=== PATIENT | female | born 1980 | race Caucasian/White ===

== ENCOUNTER 2020-01-17 15:26 | Emergency (ER) | payer MEDICAID, SELFPAY ==
[2020-01-17 15:31] VITALS: PULSE 103; RESP 16; O2SAT 96; BMI 36.2
--- NOTE | 2020-01-17 15:34 | W.ED.ALLEREA ---
HPI - Allergic Reaction General: Chief complaint: Allergic Reaction Stated complaint: ALLERGIC RXN TO WASP Time Seen by Provider: 01/17/20 15:33 History of Present Illness: HPI narrative: 39-year-old female reports being stung by a wasp and having allergic reaction. Not in any respiratory distress she has some redness and swelling on her posterior right thigh Onset (ago): minute(s) Exposure: insect bite Associated symptoms: Reports itching; Deny abdominal pain, difficulty breathing, dysphagia, dizziness, facial swelling, hoarseness, lip swelling, nausea, rash, tongue swelling or vomiting Severity: mild Treatment prior to arrival: none Previous Allergic Reaction History: none Review of Systems Const: Denies: fever(s), chills, body aches, change in appetite, fatigue or malaise ENMT: Denies: hoarseness Card: Denies: chest pain, edema, dyspnea on exertion or orthopnea Resp: Denies: dyspnea, productive cough or non-productive cough GI: Denies: abdominal pain, nausea, vomiting or dysphagia Neuro: Denies: dizziness All/Imm: Denies: tongue swelling or facial swelling Physical Exam Const: COMMON NORMALS: no acute distress GENERAL APPEARANCE: cooperative and comfortable ORIENTATION/CONSCIOUSNESS: Yes awake, Yes oriented to person, Yes oriented to place and Yes oriented to time HENMT: COMMON NORMALS: normocephalic, atraumatic and hearing grossly normal bilaterally HEAD & SCALP: normocephalic and atraumatic Eye: COMMON NORMALS: Equal, round and reactive pupils present, EOMs intact bilaterally, conjunctivae normal and no scleral icterus CONJUNCTIVA: Yes conjunctivae normal PUPIL: Yes Equal, round and reactive pupils present Neck/C-Spine: COMMON NORMALS: no JVD Resp: COMMON NORMALS: normal respiratory effort, No retractions, No use of accessory muscles and clear to auscultation bilaterally AUSCULTATION: clear to auscultation bilaterally Cardio: COMMON NORMALS: no JVD, regular rate, regular rhythm and No murmurs present (Cardio) RATE: regular rate RHYTHM: regular rhythm GI: COMMON NORMALS: Soft to palpation and No hepatosplenomegaly present AUSCULTATION: Yes normoactive bowel sounds PALPATION: Yes Soft to palpation, No Tenderness to palpation present (GI), No Guarding due to palpation present (GI) and Yes No hepatosplenomegaly present Extremity: COMMON NORMALS: normal to inspection, capillary refill normal, no clubbing, cyanosis or edema, no calf tenderness and no pedal edema Neuro: SENSORIUM/ORIENTATION: Yes oriented to person, Yes oriented to place and Yes oriented to time Course Vital Signs: Vital signs: Vital Signs Pulse Rate 105 H 01/17/20 15:59 Respiratory Rate 18 01/17/20 15:59 Blood Pressure 128/77 01/17/20 15:59 Pulse Oximetry 97 01/17/20 15:59 MDM - Allergic Reaction MDM Narrative: Medical decision making narrative: Localized reaction about a 5 cm round area mildly indurated and reddened there is no sign of abscess no other area of rash. Discharge Plan Discharge Patient Disposition: Home Clinical Impression: Wasp sting Condition: Stable Prescriptions: New Medrol (Bj) 4 mg tablets,dose pack See Rx Instructions .ROUTE .COMPLEX Qty: 21 RF: 0 hydroxyzine HCl 25 mg tablet 25 mg PO Q6H PRN (Reason: itching) Qty: 14 RF: 0 Discharge Orders: Discharge Order (Routine); Ordered 01/17/20 Ordered By: Arcadio Ahumada Referrals: Soy Knapp MD [Primary Care Provider] - Discharge Diet: Usual diet Discharge Activity: Increase activity as tolerated Discharge Date/Time: 01/17/20 16:00 Coding Level of Care Code ED [employer] [facility]
[2020-01-17] MEDS: dexamethasone 10 mg/mL INJ IM (15:41)
[2020-01-17 15:42] VITALS: RESP 18
[2020-01-17] MEDS: hyDROXYzine 25 mg Capsule PO (15:44)
[2020-01-17 15:59] VITALS: BP 128/77; PULSE 105; RESP 18; O2SAT 97
== END 2020-01-17 16:00 | disposition home or self-care (01) ==
LOC: ER 15:49
PROVIDERS: Emergency Provider Family Medicine; PCP Family Medicine
DX: T63.461A Toxic effect of venom of wasps, accidental (unintentional), initial encounter (principal)
CPT/HCPCS: 12345; 96372; 99283; J1100

== ENCOUNTER → 2022-04-09 14:40 | Outpatient (BNVA) | payer MEDICAID, SELFPAY | PROVIDERS: PCP Family Medicine; Visit Provider Nurse Practitioner Women's Health | DX: Z12.4 Encounter for screening for malignant neoplasm of cervix (principal) | CPT/HCPCS: 87624 ==

== ENCOUNTER 2024-05-31 07:24 | Emergency (ER) | payer SELFPAY ==
[2024-05-31 07:32] VITALS: BP 134/75; PULSE 83; RESP 18; TEMP 36.8; O2SAT 97; BMI 36.9
--- NOTE | 2024-05-31 09:30 | W.ED.EYEPROB ---
HPI - Eye Problem General: Chief complaint: Eye Problems Stated complaint: rt eye inj Time Seen by Provider: 05/31/24 07:26 Source: patient Mode of arrival: ambulatory Limitations: no limitations History of Present Illness: 43-year-old woman presents to the ER complaining of right eye pain. Patient states this started 4 days ago. Thinks maybe she scratched her eye. She has noticed what she believes to be a stye to her inner lower lid. She has had these before but usually on the eyelid edge. Has been placing ice on the area. She mentions she notices white discharge in the morning when she wakes up. Patient denies any vision changes, foreign body sensation, or burning. No other complaints at this time. chief complaint: eye pain and eye redness Onset (ago): day(s) Onset description: gradual Duration: constant Location: right eye Eye Symptoms: redness and pain Severity: moderate If Pain, Quality: aching and throbbing Associated symptoms: Denies fever(s), headache(s), nausea, neck pain or vomiting Treatments Prior to Arrival: none Related Data Previous Rx's ?Medication ?Instructions ?Recorded erythromycin 5 mg/gram (0.5 %) eye 1 applic ophthalmic (eye) Q4H 7 05/31/24 ointment (3.5 gram tube) days #1 g Allergies Allergy/AdvReac Type Severity Reaction Status Date / Time insect venom Allergy ALGY-Difficulty Verified 06/18/23 08:53 Swallowing Review of Systems Const: Denies: fever(s), chills or body aches Eyes: Reports: eye discomfort, eye discharge, eye redness and dry eyes; Denies: change in vision or photophobia Card: Denies: chest pain or palpitations Resp: Denies: dyspnea GI: Denies: abdominal pain, nausea or vomiting Musc: Denies: neck pain or muscle cramps Neuro: Denies: headache(s), dizziness or confusion PFSH ED PFSH: Medical History Lumbar pain with radiation down right leg Surgical History History of tubal ligation History of lumpectomy of both breasts Lump remove no cancer [place], [place] Family History Brother Family history of thyroid problem Denies family history of Colon cancer Ovarian cancer Diabetes Heart disease Breast cancer Hypertension Uterine cancer Stroke Hyperchloremia Social History Smoking and tobacco/nicotine status: current every day tobacco/nicotine user Alcohol intake: unknown Substance/Drug Use: unknown Adopted: No Caregiver/support person: No Lives independently: Yes Household members: spouse and children Housing: House Marital status: Number of children: 3 service: No Current occupational status: unemployed Do you think of yourself as: Straight/Heterosexual Current gender identity: Female Physical Exam Const: COMMON NORMALS: no acute distress and patient oriented x3 GENERAL APPEARANCE: cooperative Eye: COMMON NORMALS: Equal, round and reactive pupils present, EOMs intact bilaterally, conjunctivae normal and no scleral icterus GENERAL EYE: normal light reflex VISUAL ACUITY: Yes acuity normal CONJUNCTIVA: Yes conjunctivae normal PUPIL: Yes Equal, round and reactive pupils present DIRECT OPHTHALMOSCOPY: Yes normal light reflex OTHER: small lesion to lower inner eyelid that appears to be more of a chalazion than an internal hordeolum; no discharge; patient refusing fluorescein stain examination Cardio: COMMON NORMALS: regular rate and regular rhythm RATE: regular rate RHYTHM: regular rhythm Neuro: COMMON NORMALS: patient oriented x3 Course Vital Signs: Vital signs: Vital Signs Temperature 98.2 F 05/31/24 07:32 Pulse Rate 68 05/31/24 10:06 Respiratory Rate 18 05/31/24 07:32 Blood Pressure 119/79 05/31/24 10:06 Pulse Oximetry 97 05/31/24 10:06 Oxygen Delivery Me thod Room Air 05/31/24 07:32 MDM - Eye Problem Medical Decision Making Patient here with a lesion to her right lower inner eyelid consistent with a chalazion versus an internal hordeolum. She does describe it is painful which would be uncharacteristic for a chalazion. There is some history that she possibly scratched her eye. Discussed the need for fluorescein stain examination but patient declines. Will recommend warm compresses. Will cover with erythromycin ointment. Will have her follow-up with ophthalmology in 1 to 2 weeks if symptoms do not improve. Return ED precautions discussed. No radiology studies performed this visit Discharge Plan Discharge Patient Disposition: Home Clinical Impression: Chalazion of right lower eyelid Condition: Stable Prescriptions: New erythromycin 5 mg/gram (0.5 %) ointment 1 applic ophthalmic (eye) Q4H 7 Days Qty: 1 0RF Discharge Orders: Discharge ED (Routine); Ordered 05/31/24 Ordered By: Zully Romero Patient Instructions: Stye (ED), Nohemi (ED) Activity Restrictions/Additional Instructions: As we discussed, please apply warm compresses to the eye for 10 to 20 minutes up to 5-6 times daily. We will go ahead and place you on antibiotic ointment as history suggests you may have inadvertently scratched your eye. You did not want to undergo fluorescein stain examination today. Will set you up with ophthalmology in 1 to 2 weeks in case symptoms do not improve. You need to return to the emergency department for worsening pain, swelling around your eye, worsening redness, or any other concerns you may have. Print Language: [place] Coding Level of Care Code ED Manager [employer] for [facility]
[2024-05-31 10:06] VITALS: BP 119/79; PULSE 68; O2SAT 97
== END 2024-05-31 10:07 | disposition home or self-care (01) ==
PROVIDERS: Emergency Provider Physician Assistant
DX: H00.12 Chalazion right lower eyelid (principal); Z72.0 Tobacco use
CPT/HCPCS: 99283